=== PATIENT | female | born 1985 | race Caucasian/White ===

== ENCOUNTER 2020-09-30 14:58 | Emergency (ER) | payer MEDICAID ==
[~2020-09-30] VITALS: Ht 162.6 cm; Wt 96.0 kg
[2020-09-30 15:01] VITALS: BP 100/66
[2020-09-30] MEDS ORDERED: CLON0.1T PO (15:36)
[2020-09-30] MEDS ORDERED: CEPH250T PO (15:36)
[2020-09-30] MEDS ORDERED: MUPI22OI30 TOP (15:36)
[2020-09-30] MEDS ORDERED: IBUP-1984 PO (15:36)
== END 2020-09-30 15:44 | disposition home or self-care (01) ==
LOC: ER 14:58
DX: Z00.8 Encounter for other general examination (principal); M79.89 Other specified soft tissue disorders; Z88.0 Allergy status to penicillin; Z88.1 Allergy status to other antibiotic agents; Z79.2 Long term (current) use of antibiotics; Z79.899 Other long term (current) drug therapy
CPT/HCPCS: 99283

== ENCOUNTER 2020-10-11 05:16 | Emergency (ER) | payer MEDICAID ==
[~2020-10-11] VITALS: Ht 162.6 cm; Wt 94.2 kg
[~2020-10-11 05:16] MED LIST: CLON0.1T PO
[2020-10-11 06:23] VITALS: BP 91/68
== END 2020-10-11 11:36 | disposition left against medical advice (07) ==
LOC: ER 05:16
DX: H57.10 Ocular pain, unspecified eye (principal); Z53.21 Procedure and treatment not carried out due to patient leaving prior to being seen by health care provider
CPT/HCPCS: 93005

== ENCOUNTER 2021-07-11 14:25 | Emergency (ER) | payer MEDICAID ==
[~2021-07-11] VITALS: Ht 162.6 cm; Wt 95.5 kg
[2021-07-11 17:47] LABS: RED BLOOD COUNT 4.72 X10'6 (4.20-5.60)
[2021-07-11 17:49] LABS: BASOPHILS % (AUTO) 0.5 % (0-1); EOSINOPHILS # (AUTO) 0.1 X10'3 (0-0.9); EOSINOPHILS % (AUTO) 0.8 % (0-6); HEMATOCRIT 43.5 % (35.0-45.0); HEMOGLOBIN 14.6 g/dl (12.0-16.0); LYMPHOCYTES # (AUTO) 2.4 X10'3 (1.1-4.8); LYMPHOCYTES % (AUTO) 26.5 % (21-51); MEAN CORPUSCULAR HGB CONC 33.6 g/dL (33.0-36.5); MEAN CORPUSCULAR VOLUME 92.1 FL (78-98); MEAN PLATELET VOLUME 9.7 FL (7.4-10.4); MONOCYTES # (AUTO) 0.6 X10'3 (0-0.9); MONOCYTES % (AUTO) 6.8 % (2-12); NEUTROPHILS # (AUTO) 5.9 X10'3 (1.8-7.7); NEUTROPHILS % (AUTO) 65.4 % (42-75); PLATELET COUNT 204 X10'3 (140-440); RED CELL DISTRIBUTION WIDTH 12.7 % (11.5-14.5); WHITE BLOOD COUNT 9.1 X10'3 (4.5-11.0)
[2021-07-11 18:01] LABS: ALANINE AMINOTRANSFERASE 19 U/L (12-78); ALBUMIN 4.2 G/DL (3.4-5.0); ALBUMIN/GLOBULIN RATIO 1.1 (1.1-1.5); ALKALINE PHOSPHATASE 65 IU/L (46-116); ANION GAP 8 (8-16); ASPARTATE AMINO TRANSFERASE 20 U/L (10-37); BILIRUBIN,TOTAL 0.4 MG/DL (0.1-1.0); BLOOD UREA NITROGEN 11 MG/DL (7-18); BUN/CREATININE RATIO 14.9 (6.6-38.0); CALCIUM 8.7 MG/DL (8.5-10.1); CHLORIDE 107 MMOL/L (99-107); CREATININE 0.74 MG/DL (0.40-0.90); GLUCOSE 83 MG/DL (70-104); LIPASE 56 U/L (73-393); POTASSIUM 3.8 MMOL/L (3.5-5.1); SODIUM 142 MMOL/L (135-145); TOTAL CARBON DIOXIDE 27.5 MMOL/L (24-32); TOTAL PROTEIN 8.2 G/DL (6.4-8.2); eGFR 90 ML/MIN
[2021-07-11 18:45] VITALS: BP 117/79
[2021-07-11] MEDS ORDERED: METO-292 PO (18:52)
[2021-07-11] MEDS ORDERED: PANT-47 PO (18:52)
[2021-07-11] MEDS ORDERED: ondansetron 4mg rapidly disintigrating tab PO ONE (18:55)
[2021-07-11] MEDS ORDERED: mag hydrox/Alum hydrox/simeth 30ml oral suspension PO ONE (18:55)
[2021-07-11] MEDS ORDERED: sucralfate 1 gm tablet PO ONE (18:55)
[2021-07-11] MEDS ORDERED: LIDOcaine Viscous 15ml cup MM ONE (18:55)
== END 2021-07-11 19:18 | disposition home or self-care (01) ==
LOC: ER 14:26
DX: R11.2 Nausea with vomiting, unspecified (principal); R10.13 Epigastric pain; R19.7 Diarrhea, unspecified; F17.200 Nicotine dependence, unspecified, uncomplicated; F12.90 Cannabis use, unspecified, uncomplicated; Z87.11 Personal history of peptic ulcer disease; Z90.49 Acquired absence of other specified parts of digestive tract; Z88.0 Allergy status to penicillin; Z88.1 Allergy status to other antibiotic agents; Z79.899 Other long term (current) drug therapy
CPT/HCPCS: 36415; 80053; 83690; 85025; 99284

== ENCOUNTER 2021-07-23 13:54 | Emergency (ER) | payer MEDICAID ==
[~2021-07-23] VITALS: Ht 162.6 cm; Wt 100.0 kg
[~2021-07-23 13:54] MED LIST changes: +METO-292 PO; +PANT-47 PO
[2021-07-23 14:03] VITALS: BP 100/73
[2021-07-23] MEDS ORDERED: IBUP-1986 PO (15:10)
[2021-07-23] MEDS ORDERED: AZIT250T2 PO (15:10)
[2021-07-23 15:18] LABS: CLARITY,URINE SLIGHTLY CLOUDY (Clear); GLUCOSE, URINE NEGATIVE (Neg); KETONES,URINE NEGATIVE (Neg); LEUKOCYTE ESTERASE ,URINE TRACE (Neg); NITRITES, URINE NEGATIVE (Neg); OCCULT BLOOD,URINE LARGE (Neg); PH,URINE 5.5 (4.8-8.0); PROTEIN,URINE NEGATIVE (Neg); UROBILINOGEN,URINE 0.2 E.U/dL (0.2-1.0)
[2021-07-23 15:23] LABS: UA COLLECTION TYPE CLN CATCH MIDSTREAM
[2021-07-23 15:24] LABS: COLOR,URINE BROWN (Yellow); URINE HCG NEGATIVE (NEG)
[2021-07-23 15:25] LABS: RBC,URINE TNTC /HPF (0-2)
[2021-07-23 15:26] LABS: BACTERIA,URINE 1+ /HPF (Neg); MUCUS STRANDS NONE SEEN /LPF (Neg); SQUAMOUS EPITHELIAL CELL,UR MODERATE /LPF (FEW)
[2021-07-23] MEDS ORDERED: ONDA4TAB12 PO (15:39)
== END 2021-07-23 15:47 | disposition home or self-care (01) ==
LOC: ER 13:55
DX: S93.401A Sprain of unspecified ligament of right ankle, initial encounter (principal); K02.9 Dental caries, unspecified; K08.89 Other specified disorders of teeth and supporting structures; M25.571 Pain in right ankle and joints of right foot; F12.90 Cannabis use, unspecified, uncomplicated; Z87.11 Personal history of peptic ulcer disease; Z90.49 Acquired absence of other specified parts of digestive tract; Z88.0 Allergy status to penicillin; Z88.1 Allergy status to other antibiotic agents; Z79.2 Long term (current) use of antibiotics; Z79.899 Other long term (current) drug therapy; W18.40XA Slipping, tripping and stumbling without falling, unspecified, initial encounter; Y93.01 Activity, walking, marching and hiking; Y92.89 Other specified places as the place of occurrence of the external cause; Y99.8 Other external cause status
CPT/HCPCS: 73610; 81001; 81025; 87088; 99284

== ENCOUNTER 2021-09-13 10:26 | Emergency (ER) | payer MEDICAID ==
[~2021-09-13] VITALS: Ht 165.1 cm; Wt 90.9 kg
[~2021-09-13 10:26] MED LIST changes: +IBUP-1986 PO; +ONDA4TAB12 PO
[2021-09-13 11:19] LABS: BASOPHILS % (AUTO) 0.1 % (0-1); EOSINOPHILS % (AUTO) 0 % (0-6); HEMATOCRIT 43.8 % (35.0-45.0); HEMOGLOBIN 14.8 g/dl (12.0-16.0); LYMPHOCYTES # (AUTO) 0.5 X10'3 (1.1-4.8); LYMPHOCYTES % (AUTO) 5.4 % (21-51); MEAN CORPUSCULAR HEMOGLOBIN 31.3 PG (27.0-31.0); MEAN CORPUSCULAR HGB CONC 33.9 g/dL (33.0-36.5); MEAN CORPUSCULAR VOLUME 92.5 FL (78-98); MONOCYTES # (AUTO) 0.2 X10'3 (0-0.9); MONOCYTES % (AUTO) 2.3 % (2-12); NEUTROPHILS % (AUTO) 92.2 % (42-75); PLATELET COUNT 169 X10'3 (140-440); RED BLOOD COUNT 4.74 X10'6 (4.20-5.60); RED CELL DISTRIBUTION WIDTH 13.7 % (11.5-14.5); WHITE BLOOD COUNT 8.6 X10'3 (4.5-11.0)
[2021-09-13 11:28] LABS: ALANINE AMINOTRANSFERASE 18 U/L (12-78); ALBUMIN 4.2 G/DL (3.4-5.0); ALBUMIN/GLOBULIN RATIO 1.1 (1.1-1.5); ALKALINE PHOSPHATASE 63 IU/L (46-116); ANION GAP 14 (8-16); ASPARTATE AMINO TRANSFERASE 8 U/L (10-37); BILIRUBIN,TOTAL 0.5 MG/DL (0.1-1.0); BLOOD UREA NITROGEN 11 MG/DL (7-18); BUN/CREATININE RATIO 14.7 (6.6-38.0); CALCIUM 8.9 MG/DL (8.5-10.1); CHLORIDE 103 MMOL/L (99-107); CREATININE 0.75 MG/DL (0.40-0.90); GLUCOSE 150 MG/DL (70-104); LIPASE < 50 U/L (73-393); POTASSIUM 3.9 MMOL/L (3.5-5.1); SODIUM 138 MMOL/L (135-145); TOTAL CARBON DIOXIDE 21.3 MMOL/L (24-32); eGFR 88 ML/MIN
[2021-09-13] MEDS ORDERED: simethicone 125mg capsule PO STA (11:44)
[2021-09-13] MEDS ORDERED: methadone 10mg tablet PO ONE (11:45)
[2021-09-13] MEDS ORDERED: ondansetron 4mg rapidly disintigrating tab PO ONE (11:45)
--- NOTE | 2021-09-13 12:57 | NUR ---
MAYA BILLY MADE AWARE PATIENT IS ACTIVELY VOMITING, UNABLE TO TOLERATE WATER.
[2021-09-13] MEDS ORDERED: haloperidol lactate 5mg/ml inj IM ONE (13:00)
[2021-09-13] MEDS ORDERED: LORazepam 2 mg/ml vial IM ONE (13:00)
[2021-09-13 15:41] VITALS: BP 108/62
== END 2021-09-13 15:42 | disposition home or self-care (01) ==
LOC: ER 10:26
DX: A08.4 Viral intestinal infection, unspecified (principal); Z88.1 Allergy status to other antibiotic agents; Z88.0 Allergy status to penicillin; Z79.899 Other long term (current) drug therapy
CPT/HCPCS: 36415; 80053; 83690; 85025; 96372; 99284; J1630; J2060

== ENCOUNTER 2021-10-05 02:37 | Emergency (ER) | payer MEDICAID ==
[~2021-10-05] VITALS: Ht 162.6 cm; Wt 90.9 kg
[2021-10-05 02:40] VITALS: BP 158/106
[2021-10-05] MEDS ORDERED: normal saline 1000ml 1,000 ML IV ONE (02:40)
[2021-10-05] MEDS ORDERED: proCHLORperazine 10 MG/2 ml inj IV ONE (02:40)
[2021-10-05] MEDS ORDERED: LORazepam 2 mg/ml vial IV ONE ×2 (02:40→04:10)
[2021-10-05] MEDS ORDERED: famotidine/PF 10 mg/ml inj IV ONE (02:45)
[2021-10-05] MEDS ORDERED: pantoprazole 40MG/NS 100ML BAG 100 ML IV ONE (02:45)
[2021-10-05 03:17] LABS: BASOPHILS # (AUTO) 0.1 X10'3 (0-0.2); BASOPHILS % (AUTO) 0.7 % (0-1); EOSINOPHILS # (AUTO) 0.4 X10'3 (0-0.9); EOSINOPHILS % (AUTO) 5.6 % (0-6); HEMATOCRIT 41.5 % (35.0-45.0); HEMOGLOBIN 14.1 g/dl (12.0-16.0); LYMPHOCYTES # (AUTO) 2.6 X10'3 (1.1-4.8); LYMPHOCYTES % (AUTO) 37.3 % (21-51); MEAN CORPUSCULAR HEMOGLOBIN 31.7 PG (27.0-31.0); MEAN CORPUSCULAR VOLUME 93.2 FL (78-98); MEAN PLATELET VOLUME 9.9 FL (7.4-10.4); MONOCYTES # (AUTO) 0.5 X10'3 (0-0.9); MONOCYTES % (AUTO) 7.8 % (2-12); NEUTROPHILS # (AUTO) 3.4 X10'3 (1.8-7.7); NEUTROPHILS % (AUTO) 48.6 % (42-75); PLATELET COUNT 200 X10'3 (140-440); RED BLOOD COUNT 4.45 X10'6 (4.20-5.60); RED CELL DISTRIBUTION WIDTH 13.9 % (11.5-14.5)
[2021-10-05 03:27] LABS: ALANINE AMINOTRANSFERASE 26 U/L (12-78); ALBUMIN 3.6 G/DL (3.4-5.0); ALBUMIN/GLOBULIN RATIO 1.1 (1.1-1.5); ALKALINE PHOSPHATASE 58 IU/L (46-116); ANION GAP 8 (8-16); ASPARTATE AMINO TRANSFERASE 17 U/L (10-37); BILIRUBIN,TOTAL 0.2 MG/DL (0.1-1.0); BLOOD UREA NITROGEN 9 MG/DL (7-18); CALCIUM 8.7 MG/DL (8.5-10.1); CHLORIDE 107 MMOL/L (99-107); GLUCOSE 126 MG/DL (70-104); LIPASE 149 U/L (73-393); POTASSIUM 3.6 MMOL/L (3.5-5.1); SODIUM 141 MMOL/L (135-145); TOTAL CARBON DIOXIDE 25.6 MMOL/L (24-32); TOTAL PROTEIN 6.8 G/DL (6.4-8.2); eGFR 63 ML/MIN
[2021-10-05] MEDS ORDERED: metoclopramide 5 mg/ml inj IV ONE (03:35)
[2021-10-05] MEDS ORDERED: diphenhydrAMINE 50 mg/ml inj IV ONE (03:55)
[2021-10-05] MEDS ORDERED: ONDA4TAB12 PO (03:57)
[2021-10-05] MEDS ORDERED: PROM25SU9 RC (03:57)
[2021-10-05 04:42] LABS: URINE HCG NEGATIVE (NEG)
[2021-10-05 04:51] LABS: CLARITY,URINE CLEAR (Clear); COLOR,URINE YELLOW (Yellow); GLUCOSE, URINE NEGATIVE (Neg); KETONES,URINE NEGATIVE (Neg); LEUKOCYTE ESTERASE ,URINE NEGATIVE (Neg); NITRITES, URINE NEGATIVE (Neg); OCCULT BLOOD,URINE NEGATIVE (Neg); PROTEIN,URINE NEGATIVE (Neg); UROBILINOGEN,URINE 0.2 E.U/dL (0.2-1.0)
[2021-10-05 05:00] LABS: UA COLLECTION TYPE CLN CATCH MIDSTREAM
== END 2021-10-05 04:35 | disposition home or self-care (01) ==
LOC: ER 02:38
DX: R11.2 Nausea with vomiting, unspecified (principal); R10.13 Epigastric pain; F12.90 Cannabis use, unspecified, uncomplicated; F11.90 Opioid use, unspecified, uncomplicated; Z90.49 Acquired absence of other specified parts of digestive tract; Z88.0 Allergy status to penicillin; Z88.8 Allergy status to other drugs, medicaments and biological substances; Z79.899 Other long term (current) drug therapy
CPT/HCPCS: 36415; 80053; 81003; 81025; 83690; 85025; 96361; 96374; 96375; 96376; 99284; C9113; J0780; J1200; J2060; J3490; J7030

== ENCOUNTER 2021-10-20 06:29 | Emergency (ER) | payer MEDICAID ==
[~2021-10-20] VITALS: Ht 162.6 cm; Wt 96.9 kg
[~2021-10-20 06:29] MED LIST changes: +PROM25SU9 RC
[2021-10-20 06:39] VITALS: BP 122/84
[2021-10-21] MEDS ORDERED: METO-292 PO (09:46)
[2021-10-21] MEDS ORDERED: ONDA4TAB12 PO (09:46)
== END 2021-10-20 07:41 | disposition left against medical advice (07) ==
LOC: ER 06:29
DX: R11.2 Nausea with vomiting, unspecified (principal); R19.7 Diarrhea, unspecified; Z53.21 Procedure and treatment not carried out due to patient leaving prior to being seen by health care provider

== ENCOUNTER 2021-10-21 05:36 | Emergency (ER) | payer MEDICAID ==
[~2021-10-21] VITALS: Ht 162.6 cm; Wt 95.5 kg
[2021-10-21 05:53] VITALS: BP 137/88
[2021-10-21] MEDS ORDERED: METO-292 PO (09:46)
[2021-10-21] MEDS ORDERED: ONDA4TAB12 PO (09:46)
[2021-10-21 09:49] LABS: URINE HCG NEGATIVE (NEG)
[2021-10-21 09:50] LABS: CLARITY,URINE CLOUDY (Clear); GLUCOSE, URINE NEGATIVE (Neg); KETONES,URINE NEGATIVE (Neg); LEUKOCYTE ESTERASE ,URINE TRACE (Neg); NITRITES, URINE NEGATIVE (Neg); OCCULT BLOOD,URINE LARGE (Neg); PH,URINE 7.5 (4.8-8.0); PROTEIN,URINE TRACE mg/dl (Neg); UROBILINOGEN,URINE 0.2 E.U/dL (0.2-1.0)
[2021-10-21 09:57] LABS: COLOR,URINE AMBER (Yellow); UA COLLECTION TYPE CLN CATCH MIDSTREAM
[2021-10-21 09:59] LABS: BACTERIA,URINE FEW /HPF (Neg); RBC,URINE TNTC /HPF (0-2); WBC,URINE 0-4 /HPF (0-4)
[2021-10-21 10:00] LABS: MUCUS STRANDS FEW /LPF (Neg); SQUAMOUS EPITHELIAL CELL,UR MANY /LPF (FEW); URINE AMPHETAMINE SCREEN NEGATIVE (Neg); URINE BARBITUATE SCREEN NEGATIVE (Neg); URINE BENZODIAZEPINES SCREEN NEGATIVE (Neg); URINE CANNABINOID SCREEN POSITIVE (Neg); URINE COCAINE SCREEN NEGATIVE (Neg); URINE METHADONE SCREEN POSITIVE (Neg); URINE OPIATE SCREEN POSITIVE (Neg); URINE PHENCYCLIDINE SCREEN NEGATIVE (Neg)
== END 2021-10-21 10:02 | disposition home or self-care (01) ==
LOC: ER 05:36
DX: F12.288 Cannabis dependence with other cannabis-induced disorder (principal); K51.919 Ulcerative colitis, unspecified with unspecified complications; Z88.0 Allergy status to penicillin; Z88.1 Allergy status to other antibiotic agents; Z90.49 Acquired absence of other specified parts of digestive tract
CPT/HCPCS: 80305; 81001; 81025; 99283